=== PATIENT | female | born 1990 | race African-American/Black ===

== ENCOUNTER 2023-02-01 15:27 | Emergency (ER) | payer MEDICAID, SELFPAY ==
[2023-02-01 15:28] VITALS: BP 95/62; PULSE 67; RESP 16; TEMP 36; O2SAT 100; BMI 25.8
--- NOTE | 2023-02-01 15:43 | US_ITS ---
We are attempting to reach an attending provider to discuss findings. An addendum with communication details will be sent when the communication is complete. EXAM: US , TRANSVAGINAL CLINICAL INDICATION: 3 months preg and vag bleeding TECHNIQUE: Real-time transvaginal obstetrical ultrasound of the maternal pelvis and a first trimester with image documentation. Transvaginal imaging was used for better evaluation of the fetus and adnexa. COMPARISON: No relevant prior studies available. FINDINGS: GESTATION: The gestational sac with a mean sac diameter 2.2 cm age 7 weeks 1 day. There is a pole crown-rump length of 9 mm age 7 weeks 0 days. No heart rate is identified. PLACENTA/AMNIOTIC FLUID: Cannot be adequately evaluated due to the early gestational age. UTERUS/CERVIX: Uterus measures 10.1 x 7.4 x 8.5 cm. There is a hypoechoic area in the uterus that measures 2.9 x 1.0 cm possibly representing fibroid. OVARIES: The right ovary measures 2.9 4.5 x 2.1 cm. There is a 2.3 x 1.6 x 1.9 cm hypoechoic cyst in the right ovary. The left ovary measures 1.9 x 5.3 x 2.4 cm. No mass. FREE FLUID: No free fluid. US/Transvaginal w/Preg US IMPRESSION: Intrauterine gestation with an average ultrasound age of 7 weeks 4 days and estimated due date of 09/16/2023. No heart rate is identified and this is compatible with demise. Electronically Signed: London Valle MD at 18:09 EDT ,
--- NOTE | 2023-02-01 15:44 | ED.VIS.FEGU ---
HPI HPI - Female History of Present Illness Chief Complaint: Vag Bld, Preg Detail of Chief Complaint: 3 months now with vaginal spotting for the last 3 days. Informant: patient Pain Pain: Negative for Pelvic Pain or Vaginal Pain Bleeding Issue: Positive for Vaginal bleeding; Negative for Passing clots or Passing tissue Onset: Days Context: Gradual Onset Timing: Intermittent Current Severity: Spotting Maximum Severity: Spotting Associated Symptoms Associated Symptoms: Negative for Dysuria, Frequency or Urgency Test: Positive Sexually: Positive for Active P: 1 Ab: 1 Narrative Narrative: 32-year-old female G3, P1 Ab1 with that being in a topic for which she needed surgery in [place]. States that she is about 3 months with a last menstrual period being around November 06. States she is having vaginal spotting. Denies any clots. Denies any pain or fever. No dysuria. She has been spotting now for 3 days. She has also previously had a . Prior similar symptoms: Yes Recent Illness/Hospitalization: No PFSH PFSH Allergy/AdvReac Type Severity Reaction Status Date / Time No Known Allergies Allergy Verified 02/01/23 15:28 Social History Smoking Status: Never smoker ROS ROS ED ROS Narrative Denies recent illness. Review of Systems ROS Unobtainable: Denies due to encephalopathy Constitutional Constitutional ED: Denies chills or fever(s) Eyes Eyes: Denies blurry vision ENT ENT ED: Denies ear pain Cardiovascular Cardiovascular: Denies chest pain Respiratory/Chest Respiratory/Chest: Denies cough or dyspnea Gastrointestinal Gastrointestinal: Denies abdominal pain Genitourinary Genitourinary ED: Denies dysuria or hematuria Musculoskeletal Musculoskeletal: Denies arthralgias Integumentary Denies abscess Neurologic Neurologic: Denies headache(s) Psychiatric Psychiatric: Denies anxiety Endocrine Endocrinology: Denies heat intolerance Hematologic/Lymphatic Hematologic/Lymphatic: Denies easy bleeding Allergic/Immunologic Allergic/Immunologic ED: Denies mouth swelling EXAM Physical Exam Narrative Exam Narrative: Well-appearing 32-year-old female. Vital signs are stable and afebrile. Her initial blood pressure was 95/62. She has a small female. She does not look septic or toxic. She is in no distress. She denies any abdominal pain. Significant other at bedside. H EENT exam unremarkable. Lungs are clear. Heart regular rhythm rate about 70 no murmur. Abdomen soft nontender, nondistended, normal bowel sounds without peritoneal signs. No suprapubic tenderness. Moving all 4 extremities. Nontender no edema. Neurologically she is awake and alert with no focal motor deficits. Const Vital Signs: 02/01/23 15:28 Temperature 96.8 F L Temperature Source Temporal Pulse Rate 67 Respiratory Rate 16 Blood Pressure 95/62 Blood Pressure Mean 73 Pulse Ox 100 Positive well nourished and well developed; Negative for obese, cachectic, contractures or unkempt General Appearance ED: well developed and NAD; Negative for unkempt, cachectic, contractures or pallor Nutritional Appearance: Negative for cachectic or obese HEENT Reports moist mucous membranes; Denies dry mucous membranes Negative for trauma or tenderness Mouth ED: No dry mucous membranes Mouth: No dry mucous membranes Eyes EOMs intact bilaterally General Eye ED: Negative for pale conjunctiva or scleral icterus Neck no lymphadenopathy, supple and no JVD General: Negative for other Thyroid: Negative for tender Lymph Lymphatic: Negative for other Chest Wall inspection of chest normal and palpation of chest normal Resp normal respiratory effort and clear to auscultation bilaterally Effort and Inspection: Negative for pain with movement Auscultation: Negative for rales, rhonchi or wheezes Cardio regular rate, regular rhythm, S1 normal heart sound, no murmurs and no JVD GI normal to inspection, nondistended, normoactive bowel sounds, soft to palpation, non-tender, non-distended and no masses Auscultation: normoactive bowel sounds Palpation: Negative for tender, guarding, rigid, hepatomegaly, splenomegaly or mass Back/Spine no CVA tenderness General Back: Negative for CVA tenderness Cervical Spine: Negative for cervical spine tenderness Thoracic Spine / Upper Back: Negative for thoracic spinal tenderness Lumbar Spine / Lower Back: Negative for lumbar spinal tenderness Sacrum: Negative for other Extremity normal to inspection and full ROM General Extremety ED: Negative for edema or tenderness General Extremity: Negative for edema Neuro oriented x3 and CN's II-XII intact bilaterally Sensorium / Orientation: alert, oriented to person, oriented to place and oriented to time; Negative for confused, lethargic or stuporous Motor Exam: strength 5/5 throughout Psych mental status grossly normal Appearance: Negative for unkempt Attitude: No agitated Speech: No other Mood & Affect: Negative for depressed, anxious or tearful Skin no rashes or lesions noted and no wounds General Skin Exam: Negative for jaundice or pallor Rashes: No rashes noted Trauma: Negative for other MDM MDM MDM Narrative Medical decision making narrative: 32-year-old female G3, P1 Ab1 with that being an ectopic for which she needed surgery. She is also had a prior . Is approximately 3 months with 3 days of vaginal spotting. Denies pain or fever. No dysuria. She will undergo an OPERATIONAL RISK MANAGER work-up along with a pelvic ultrasound. Currently she is not having any pain. We have no old records on the patient she recently moved to this area from [place]. Discussed all test results with the patient including the ultrasound. Patient is doing well at 6:41 PM. Speaking to the OB on-call for the [facility] because she was already going to follow-up with them. And she can follow-up with them for the vaginal bleeding and demise. I discussed all this with the patient and her at bedside. History & Record Review Discussion w/independent historian: Patient Lab Data Attestation: I reviewed the patient's lab results. Lab results narrative: CBC shows a white count of 4.9. H&H 11.8 and 35.4. Platelets 156. Blood type is O+. Quantitative hCG is 11,732. Vaginal ultrasound is read by the radiologist is not consistent with the patient's dates. She is only 6 weeks. There is no heart tone. He believes this to be demise. He sees no signs of ectopic. Labs: Laboratory Results - last 24 hr 02/01/23 15:55 WBC 4.9 RBC 4.06 L Hgb 11.8 L Hct 35.4 L MCV 87.2 MCH 29.1 MCHC 33.3 RDW Std Deviation 42.0 RDW Coeff of Carri 13.2 Plt Count 156 MPV 11.3 Immature Gran % (Auto) 0.200 Neut % (Auto) 56.2 Lymph % (Auto) 31.0 [place] % (Auto) 8.3 Eos % (Auto) 3.7 Baso % (Auto) 0.6 Absolute Neuts (auto) 2.8 Absolute Lymphs (auto) 1.53 Nucleated RBC % 0 HCG, Quant 22276 H Blood Type O POSITIVE Radiography Diagnostic Testing: Clinical Impression(s) from Imaging Studies Obstetrics Ultrasound 02/01/23 15:43 IMPRESSION: Intrauterine gestation with an average ultrasound age of 7 weeks 4 days and estimated due date of 09/16/2023. No heart rate is identified and this is compatible with demise. Electronically Signed: London Valle MD at 18:09 EDT , ADDENDUM: 02/01/23 1843 IMPRESSION: Intrauterine gestation with an average ultrasound age of 7 weeks 4 days and estimated due date of 09/16/2023. No heart rate is identified and this is compatible with demise. N.B. : The above Results were Read Back by London Valle MD to Claudio Jimenez MD, and understanding confirmed on 02/01/2023 18:36:51 (ET). Electronically Signed: London Valle MD at 18:09 EDT , Discharge Plan Triage Chief Complaint: Vag Bld, Preg ED Provider: Claudio Jimenez Dx/Rx/DC Orders Clinical Impression: demise Instructions: ED MISCARRIAGE Incomplete Primary Care Provider: Care Physician,No Primary Referrals: Mey Wagner MD [Med Staff - Active Staff] - As soon as possible Care Physician,No Primary [Primary Care Provider] - Activity Restrictions/Additional Instructions: This appears to be a demise on the ultrasound. Motrin and Tylenol for pain. You may have continued spotting you may even have heavier bleeding. Call and follow-up with the [facility] the [facility] to be seen this week by one of the OPERATIONAL RISK MANAGER's. I spoke to Dr. Mey grider. You may have cramping and heavier bleeding that is not unexpected. Return if you develop a fever, severe pain or heavy bleeding with large clots. Disposition Disposition: Home, Self Care
[2023-02-01 16:21] LABS: Absolute Lymphocyte Count 1.53 X10^3/uL (0.83-4.51); Absolute Neutrophil Count 2.8 X10^3/uL (2.0-7.7); Basophil# 0.03 X10^3/uL; Basophil% 0.6 % (0-1); Eosinophil# 0.18 X10^3/uL; Eosinophils% 3.7 % (0-5); Hematocrit 35.4 % (37-47); Hemoglobin 11.8 g/dL (12.0-15.0); Lymphocyte # 1.53 X10^3/ul (0.83-4.51); Mean Corp Hgb Conc 33.3 g/dL (32-36); Mean Corpuscular Hgb 29.1 pg (27.0-32.0); Mean Corpuscular Volume 87.2 fL (81-99); Mean Platelet Vol. 11.3 fl (6.2-12.0); Monocyte# 0.41 X10^3/uL; Monocyte% 8.3 % (0-10); NRBC Flagged by Analyzer 0 % (0-5); Neutrophil # 2.77 X10^3/uL (2.7-7.7); Neutrophil % 56.2 % (47-70); Platelet Count 156 K/mm3 (150-450); RBC Distribution Width CV 13.2 % (11.6-14.6); Red Blood Count 4.06 M/mm3 (4.2-5.4); White Blood Count 4.9 K/mm3 (4.4-11.0)
[2023-02-01 17:18] LABS: hCG Titer Quant., Serum 11732 mIU/mL (1-3)
[2023-02-01 19:12] VITALS: BP 101/64; PULSE 71; RESP 16; O2SAT 99
== END 2023-02-01 19:13 | disposition home or self-care (01) ==
PROVIDERS: Emergency Provider Emergency Medicine; Visit Provider Emergency Medicine
DX: O02.1 Missed abortion (principal)
CPT/HCPCS: 76817; 84702; 85025; 86900; 86901; 99282; A4216

== ENCOUNTER 2023-02-07 20:45 | Emergency (ER) | payer MEDICAID, SELFPAY ==
[2023-02-07 20:47] VITALS: BP 90/55; PULSE 75; RESP 16; TEMP 36.5; O2SAT 100
[2023-02-07 22:06] VITALS: BMI 26.4
--- NOTE | 2023-02-07 22:06 | EDS_ITS ---
HPI HPI - Female History of Present Illness Chief Complaint: Vag Bleeding PFSH PFSH Medical History (Updated 02/08/23 @ 01:[address] Jonathan Jose DO) Miscarriage Home Medications NK 02/07/23 [History Last Taken Unknown] Allergy/AdvReac Type Severity Reaction Status Date / Time No Known Allergies Allergy Verified 02/07/23 20:46 Social History Smoking Status: Never smoker EXAM Physical Exam Const Vital Signs: 02/07/23 20:47 02/08/23 00:17 Temperature 97.7 F L Temperature Source Temporal Pulse Rate 75 71 Respiratory Rate 16 Blood Pressure 90/55 L 101/58 L Blood Pressure Mean 66 72 Pulse Ox 100 MDM MDM MDM Narrative Medical decision making narrative: HISTORY OF PRESENT ILLNESS: 32-year-old female here with vaginal bleeding. States she was seen approximate 1 week ago and diagnosed incomplete miscarriage. States she is status post taking Cytotec. She notes lower abdominal pain and bleeding. Patient is a G3, P2. REVIEW OF SYSTEMS: Pertinent positives: Vaginal bleeding Pertinent negatives: Syncope PHYSICAL EXAM: Nursing triage notes reviewed, Vital signs reviewed Constitutional: please see mdm HENT: MMM Eyes: Pupils equal round and reactive to light, Extraocular muscles intact Neck: No stridor, no JVD, full neck ROM Lungs: Clear to auscultation, No wheezing or rales. No increased work of breathing, no conversational dyspnea, no accessory muscle use, no nasal flaring. No respiratory distress noted Heart: Regular rate and rhythm, No murmurs, No rubs and No gallops, 2+ distal pulses (radial, femoral, posterior tibial) in all extremities Abdomen: Soft, mild lower suprapubic tenderness, but no rigidity, rebound or guarding, no obvious peritoneal signs, no palpable pulsatile abdominal masses, no auscultated abdominal bruit : No CVAT, pelvic exam deferred by patient Extremities: No edema Neuro: No focal neurological deficits, cranial nerves II through XII intact, 5/5 strength in all extremities. Intact sensation to light touch in all extremities, 2+ reflexes bilateral patella tendons. Normal gait. No ataxia. Skin: No rash or lesions noted MEDICAL DECISION MAKING: Chief Complaint: Vaginal bleeding, lower abdominal pain External records reviewed: Seen in the emergency department on 02/01/2023 for vaginal bleeding. Hemoglobin at that time was 11.8 patient's blood type is O+ quantitative hCG at that time was 11,732. Ultrasound showed no heart rate patient is approximate 6 weeks . No signs of ectopic at that time. Baseline blood pressure at that time was in the low 100s. Obstetrics Ultrasound 02/01/23 15:43 IMPRESSION: Intrauterine gestation with an average ultrasound age of 7 weeks 4 days and estimated due date of 09/16/2023. No heart rate is identified and this is compatible with demise. Electronically Signed: London Valle MD at 18:09 EDT , ADDENDUM: 02/01/23 1843 IMPRESSION: Intrauterine gestation with an average ultrasound age of 7 weeks 4 days and estimated due date of 09/16/2023. No heart rate is identified and this is compatible with demise. Factors affecting care: History of ectopic Social determinants of health: none History obtained from others: The patient's Consults: none ALL IMAGES (IF OBTAINED) HAVE BEEN PERSONALLY REVIEWED AND INTERPRETED BY MYSELF. MDM Narrative: Patient was initially hypotensive otherwise hemodynamically stable afebrile and nontoxic-appearing. I considered the following differential diagnosis: Retained proximal conception, ectopic , bleeding after miscarriage Patient had soft blood pressure however was similar to her baseline. Otherwise she is hemodynamically stable. Abdominal exam was benign. I obtained ultrasound which showed no evidence of ectopic or retained products of conception. Her hCG was downtrending appropriately. She is not significantly anemic. No life-limiting etiology be ascertained. Appropriate for outpatient follow with STADIUM ATTENDANT. Instructed to return to the ED if symptoms change or worsen specifically develop heavy bleeding, she lost consciousness, develop chest pain or palpitations. To return if she develop any significant abdominal pain especially unilateral abdominal pain. The patient and/or family, caregivers express understanding. The patient and/or family, caregivers agrees with the plan. Shared decision making: I will have a discussion with the patient and or visitors regarding risk/benefits of further testing or admission. They will be made aware of of the risk/benefits inherent in this decision they will be given the opportunity to voice understanding. Total critical care time today provided was at least 0 minutes. This excludes separately billable procedures. Critical care time (if documented) is secondary to the patient having high probability of clinically significant/life threatening deterioration in the patient's condition which required my urgent intervention. Lab Data Attestation: I reviewed the patient's lab results. Lab results narrative: CBC without leukocytosis, severe anemia, no thrombocytopenia. BMP without evidence of significant electrolyte abnormalities, no anion gap, no acute kidney injury. LFTs show no evidence of hepatobiliary pathology. Blood type is O+ no need for RhoGAM hCG downtrending from prior consistent with miscarriage Labs: Laboratory Results - last 24 hr 02/07/23 22:27 WBC 8.8 RBC 4.27 Hgb 12.1 Hct 38.1 MCV 89.2 MCH 28.3 MCHC 31.8 L RDW Std Deviation 41.7 RDW Coeff of Carri 12.9 Plt Count 131 L MPV 11.0 Immature Gran % (Auto) 0.300 Neut % (Auto) 84.9 H Lymph % (Auto) 8.8 L [place] % (Auto) 5.5 Eos % (Auto) 0.3 Baso % (Auto) 0.2 Absolute Neuts (auto) 7.4 Absolute Lymphs (auto) 0.77 L Nucleated RBC % 0 Sodium 137 Potassium 4.2 Chloride 107 Carbon Dioxide 27.0 Anion Gap 3 L BUN 5 L Creatinine 0.75 Estim Creat Clear Calc 83.59 Est GFR (MDRD) Af Amer 114 Est GFR (MDRD) Non-Af 94 BUN/Creatinine Ratio 6.7 L Glucose 134 H Calcium 8.8 Total Bilirubin 0.60 AST 23 ALT 27 Alkaline Phosphatase 51 Total Protein 7.3 Albumin 3.7 Globulin 3.6 Albumin/Globulin Ratio 1.0 HCG, Quant 5106 H Blood Type O POSITIVE Antibody Screen NEGATIVE Radiography Diagnostic Testing: Clinical Impression(s) from Imaging Studies Transvaginal US 02/07/23 22:34 IMPRESSION: 1. No evidence of an intrauterine or extrauterine . 2. Heterogeneously thickened endometrium with no evidence of retained products of conception. Electronically Signed: Juan C Live DO at 23:55 EDT , Discharge Plan Triage Chief Complaint: Vag Bleeding ED Provider: Jonathan Jose Dx/Rx/DC Orders Clinical Impression: Complete miscarriage Instructions: Miscarriage Dc Prescriptions: No Action NK Primary Care Provider: Care Physician,Tiara Primary Referrals: Aurelio Andrade MD [Med Staff - Active Staff] - Activity Restrictions/Additional Instructions: Thank you for trusting us with your care today! Please take Tylenol (2 pills, 650 mg), ibuprofen (2 pills, 400 mg) every 6 hours as needed for pain and fever control. Please return to the emergency department if your symptoms change or worsen. Specifically if your bleeding worsens, pain worsens, you lose consciousness, develop chest pain, if your heart racing, if you are short of breath, Please follow with your STADIUM ATTENDANT for further outpatient evaluation and management. Disposition Disposition: Home, Self Care
--- NOTE | 2023-02-07 22:34 | US_ITS ---
INDICATION: vag bleeding s/p miscarriage------ RPOC, ectopic EXAMINATION: Ultrasound US Transvaginal Non-OB TECHNIQUE: Transvaginal sonographic images of the pelvis. Grayscale, spectral waveform, and color flow Doppler evaluation of the adnexa. COMPARISON: 02/01/2023 ultrasound. FINDINGS: UTERUS: Anteverted. 1.0 x 6.1 x 8.0 cm. No evidence of a uterine mass or fibroid. Endometrium is heterogeneous and thickened with no significant internal endometrial vascularity seen by color Doppler. Endometrial stripe thickness of 1.6 cm. RIGHT OVARY: Unremarkable. Normal vascular flow demonstrated with color and pulsed-wave Doppler. LEFT OVARY: Unremarkable. Normal vascular flow demonstrated with color and pulsed-wave Doppler. FREE FLUID: No significant free fluid. US/Transvaginal Non- IMPRESSION: 1. No evidence of an intrauterine or extrauterine . 2. Heterogeneously thickened endometrium with no evidence of retained products of conception. Electronically Signed: Juan C Live DO at 23:55 EDT ,
[2023-02-07 22:41] LABS: Absolute Lymphocyte Count 0.77 X10^3/uL (0.83-4.51); Absolute Neutrophil Count 7.4 X10^3/uL (2.0-7.7); Basophil# 0.02 X10^3/uL; Basophil% 0.2 % (0-1); Eosinophil# 0.03 X10^3/uL; Eosinophils% 0.3 % (0-5); Hematocrit 38.1 % (37-47); Hemoglobin 12.1 g/dL (12.0-15.0); Lymphocyte # 0.77 X10^3/ul (0.83-4.51); Lymphocyte % 8.8 % (19-41); Mean Corp Hgb Conc 31.8 g/dL (32-36); Mean Corpuscular Hgb 28.3 pg (27.0-32.0); Mean Corpuscular Volume 89.2 fL (81-99); Monocyte# 0.48 X10^3/uL; Monocyte% 5.5 % (0-10); NRBC Flagged by Analyzer 0 % (0-5); Neutrophil # 7.44 X10^3/uL (2.7-7.7); Neutrophil % 84.9 % (47-70); Platelet Count 131 K/mm3 (150-450); RBC Distribution Width CV 12.9 % (11.6-14.6); RBC Distribution Width SD 41.7 fl (35.1-43.9); Red Blood Count 4.27 M/mm3 (4.2-5.4); White Blood Count 8.8 K/mm3 (4.4-11.0)
[2023-02-07] MEDS: Ketorolac 15 MG/ML Vial IV (23:01)
[2023-02-07] MEDS: 0.9% Normal Saline 1,000 ML 1000 ML IV (23:01)
[2023-02-07] MEDS: Ondansetron 4 MG/2 ML Vial IV (23:01)
[2023-02-07 23:06] LABS: AST(SGOT) 23 U/L (15-37); Alanine Aminotransfer ALT/SGPT 27 U/L (13-56); Albumin, Serum 3.7 g/dL (3.2-5.0); Alkaline Phosphatase 51 U/L (45-117); Anion Gap 3 (5-15); BUN 5 mg/dL (7-18); BUN/Creat Ratio 6.7 RATIO (10-20); Calcium,Total 8.8 mg/dL (8.5-10.1); Chloride 107 mmol/L (98-107); Creatinine, Serum 0.75 mg/dL (0.55-1.02); EST Glomerular Filtration Rate 94 mL/min (>60); Est Glom Filt Rate - Afr Amer 114 mL/min (>60); Estimated Creatinine Clearance 83.59 ml/min; Globulin 3.6 g/dL (2.2-4.2); Glucose 134 mg/dL (74-106); Potassium 4.2 mmol/L (3.5-5.1); Protein, Total 7.3 g/dL (6.4-8.2); Sodium Level 137 mmol/L (136-145)
[2023-02-07 23:21] LABS: hCG Titer Quant., Serum 5106 mIU/mL (1-3)
[2023-02-08] MEDS: 0.9% Normal Saline 1,000 ML 999 ML IV (00:16)
[2023-02-08 00:17] VITALS: BP 101/58; PULSE 71
[2023-02-08 01:38] VITALS: BP 102/55; PULSE 72; RESP 18; O2SAT 99
== END 2023-02-08 01:40 | disposition home or self-care (01) ==
PROVIDERS: Emergency Provider Emergency Medicine; Visit Provider Emergency Medicine
DX: O03.9 Complete or unspecified spontaneous abortion without complication (principal); Z87.59 Personal history of other complications of pregnancy, childbirth and the puerperium
CPT/HCPCS: 76830; 80053; 84702; 85025; 86850; 86900; 86901; 96361; 96374; 96375; 99282; J7030; A4216; J2405